=== PATIENT | female | born 1990 | race Caucasian/White ===

== ENCOUNTER 2018-08-06 09:49 | Inpatient (IN) | payer BC ==
[~2018-08-06] VITALS: Ht 172.7 cm; Wt 103.1 kg
[2018-08-06 10:24] VITALS: Ht 172.7 cm; Wt 103.1 kg
[2018-08-06] MEDS ORDERED: PNV11TAB PO (10:24)
[2018-08-06 10:25] VITALS: BP 112/66; RESP 18
[2018-08-06] MEDS ORDERED: LACTATED RINGER'S 1,000 ML IV SCH (10:26)
[2018-08-06] MEDS ORDERED: METHYLERGONOVINE 0.2 MG INJ IM PRN ×2 (10:30→22:30)
[2018-08-06] MEDS ORDERED: OXYTOCIN 30 UNITS/LR 500 ML IV PRN ×2 (10:30→22:30)
[2018-08-06] MEDS ORDERED: LIDOCAINE 1% (MPF) 30 ML INJ INJ PRN (10:30)
[2018-08-06] MEDS ORDERED: CARBOPROST 250 MCG INJ IM PRN ×2 (10:30→22:30)
[2018-08-06] MEDS ORDERED: MISOPROSTOL 200 MCG TAB PR PRN ×2 (10:30→22:30)
[2018-08-06] MEDS ORDERED: IBUPROFEN 600 MG TAB PO PRN (10:30)
[2018-08-06] MEDS ORDERED: OXYTOCIN 30 UNITS/LR 500 ML IV SCH ×3 (10:30→11:30)
--- NOTE | 2018-08-06 14:04 | HP ---
Date/Time of Note Date/Time of Note DATE: 08/06/18 TIME: 13:55 OB - History Hx of Present Free Text/Dictation 28-year-old female 3 para 1 at 40 weeks gestation admitted for elective induction of labor Last Menstrual Period: October 31, 2008 Estimated Due Date: Aug 06, 2018 : 3 Para: 1 Therapeutic : 1 Care: Good Care Obstetrical Complications: None Medical Complications: None, Other (Thrombocytosis which was apparently because of iron deficiency anemia and was resolving) Past Family/Social History * Past Medical, Surgical, Family and Obstetric Histories reviewed from chart. Blood Type: A+ Rubella: immune RPR/VDRL: Negative GBS Status: Negative HBsAG: Negative OB Admission Exam Vital Signs Vital Signs Vital Signs Date Temp Pulse Resp B/P (MAP) Pulse Ox O2 O2 Flow FiO2 Time Delivery Rate 08/06/18 98.2 18 112/66 Room Air 10:25 (81) Physical Exam HEENT: WNL Heart: Rhythm Normal Lungs: Clear, Equal Abdomen: WNL Extremities: Normal Reflexes: Normal Cervical Dilatation: 2cm Effacement: 25% Station: -3 Membranes: Intact Heart Rate: 140's Accelerations: Accelerations Present Decelerations: No Decelerations Varibility: Marked Contractions on Admission: None Last 72 hours Lab Results CBC & BMP 08/06/18 10:15 OB Assessment/Plan Other Assessment: Term gestation Elective induction of labor Other plan: Will start on Pitocin augmentation MOIZ SUBRAMANIAN MD Aug 06, 2018 14:04
[2018-08-06] MEDS ORDERED: FENTAnyl 2MCG/ML-ROPIV 0.2% 100 ML ONE (16:47)
--- NOTE | 2018-08-06 17:03 | PREAC ---
Date/Time of Note Date/Time of Note DATE: 08/06/18 TIME: 16:52 Anesthesia Eval and Record Evaluation Time Pre-Procedure Interview DATE: 08/06/18 TIME: 16:52 Age 28 Sex female NPO: 8 hrs Preoperative diagnosis Labor Pain Planned procedure Labor Epidural Past Medical History Past Medical History: Includes : : (2), Para: (1), Gestational age: (40) Surgery & Anesthesia Issues No known issue Meds Anticoagulation: No Beta Robert within 24 hr: No Reason Beta Robert not given: Pt. not on B-Robert Reported Medications [id number] ( 19) 1 Each Tablet, 1 TAB PO DAILY, TAB 08/06/18 Current Medications Lactated Ringer's 1,000 ml @ 125 mls/hr Q8H IV Last administered on 08/06/18at 10:48; Admin Dose 125 MLS/HR; Start 08/06/18 at 10:26 Lidocaine (Xylocaine 1% (Mpf)) 30 ml ONCE PRN INJ .EPISIOTOMY; Start 08/06/18 at 10:30 Oxytocin/Lactated Ringer's 500 ml @ 500 mls/hr ONCE POST IV ; Start 08/06/18 at 10:30 Oxytocin/Lactated Ringer's 500 ml @ 125 mls/hr POST IV ; Start 08/06/18 at 10:30 Ibuprofen (Motrin) 600 mg ONCE PRN PO .PAIN 1-5; Start 08/06/18 at 10:30 Oxytocin/Lactated Ringer's 500 ml @ 0 mls/hr ONCE PRN IV .VAGINAL BLEEDING; Start 08/06/18 at 10:30 Methylergonovine Maleate (Methergine) 0.2 mg ONCE PRN IM .VAGINAL BLEEDING; Start 08/06/18 at 10:30 Carboprost Tromethamine (Hemabate) 250 mcg ONCE PRN IM .VAGINAL BLEEDING; Start 08/06/18 at 10:30 Misoprostol (Cytotec) 1,000 mcg ONCE PRN TN .VAGINAL BLEEDING; Start 08/06/18 at 10:30 Oxytocin/Lactated Ringer's 500 ml @ 0 mls/hr Q0M IV Last administered on 08/06/18at 11:48; Admin Dose 1 MLS/HR; Start 08/06/18 at 11:30 Meds reviewed: Yes Allergies Coded Allergies: No Known Allergy (Unverified , 08/06/18) Allergies Reviewed: Yes Labs/Studies Labs Reviewed: Reviewed by anesthesiologist Result Diagram: 08/06/18 1015 Laboratory Tests 08/06/18 10:15 Blood Bank Test 08/06/18 10:15 Antibody Screen NEGATIVE Blood Type A POSITIVE Rh Immune Globulin Candidate NO test: Positive Studies: ECG (n/a), CXR (n/a) Pre-procedure Exam Last vitals Vital Signs Date Temp Pulse Resp B/P (MAP) Pulse Ox O2 O2 Flow FiO2 Time Delivery Rate 08/06/18 98.2 18 112/66 Room Air 10:25 (81) Airway: Adequate mouth opening, Adequate thyromental dist Mallampati: Mallampati II Teeth: Normal Lung: Normal Heart: Normal ASA Physical Status ASA physical status: 2 Emergency: None Planned Anesthetic Neuraxial: Epidural Planned Pain Management Epidural Pre-operative Attestations Prior to commencing anesthesia and surgery, the patient was re-evaluated, there was verification of: *The patient's identity *The results of appropriate recent lab work and preoperative vital signs *The above evaluation not changing prior to induction *Anesthetic plan, risk benefits, alternative and complications discussed with patient/family; questions answered; patient/family understands, accepts and wishes to proceed. SHELTON REYES MD Aug 06, 2018 17:02
--- NOTE | 2018-08-06 17:04 | PAC ---
Date/Time of Note Date/Time of Note DATE: 08/06/18 TIME: 17:04 Post-Anesthesia Notes Post-Anesthesia Note Last documented vital signs Vital Signs Date Temp Pulse Resp B/P (MAP) Pulse Ox O2 O2 Flow FiO2 Time Delivery Rate 08/06/18 98.2 78 18 112/66 98 Room Air 17:05 (81) Activity: WNL Respiratory function: WNL Cardiovascular function: WNL Mental status: Baseline Pain reasonably controlled: Yes Hydration appropriate: Yes Nausea/Vomiting absent: Yes SHELTON REYES MD Aug 06, 2018 17:04
[2018-08-06] MEDS ORDERED: FENTAnyl 2MCG/ML-ROPIV 0.2% 100 ML BAG EPI SCH (17:30)
[2018-08-06] MEDS ORDERED: NALOXONE (0.4 MG/ML) INJ IV PRN (17:30)
--- NOTE | 2018-08-06 20:00 | LDN ---
Date/Time of Note Date/Time of Note DATE: 08/06/18 TIME: 19:59 Delivery Summary Normal spontaneous vaginal delivery of a viable infant over intact perineum Weeks of Gestation 40 weeks Placenta Delivered: Spontaneously, Intact & Complete Meconium: none Episiotomy: No Perineal laceration: 0 Anesthesia type: Epidural Estimated blood loss: 200 Sponge & Needle done & correct: Yes All needle counts correct: Yes Any foreign bodies felt in the: No Delivery Information Sex Sex: male Apgars 1 Minute: 9 5 Minute: 9 Suctioning Nose & mouth suctioned at galina: Yes Delee suction performed: No Umbilical Cord Umbilical cord with: 3 Vessels Cord presentations: nuchal cord Nuchal cord present X: 1 Cord Blood was obtained: Yes Mother & Baby Disposition Disposition Mother and baby were recovered in good condition Mom transferred to: Other (Maternity) Baby to NICU: No MOIZ SUBRAMANIAN MD Aug 06, 2018 20:00
[2018-08-06] MEDS ORDERED: KETOROLAC 30 MG INJ IV STA (20:01)
[2018-08-06 22:00] VITALS: BP 127/58; PULSE 75; RESP 18
[2018-08-06] MEDS ORDERED: HYDROCODONE/APAP (5/325) TAB PO PRN ×2 (22:30)
[2018-08-06] MEDS: LACTATED RINGER'S 1,000 ML IV* SCH (22:30)
[2018-08-06] MEDS ORDERED: LANOLIN HPA 1 PKT TOP PRN (22:30)
[2018-08-06] MEDS ORDERED: DIBUCAINE 1% 30 GM OINT TOP PRN (22:30)
[2018-08-06] MEDS ORDERED: ZOLPIDEM 5 MG TAB PO PRN (22:30)
[2018-08-06] MEDS ORDERED: WITCH HAZEL/GLYCERIN PAD PR PRN (22:30)
[2018-08-06] MEDS ORDERED: BENZOCAINE 20% 56 ML SPRAY TOP PRN (22:30)
[2018-08-06] MEDS: CEPHALEXIN 500 MG CAP PO SCH (23:40)
[2018-08-06] MEDS: IBUPROFEN 600 MG TAB PO SCH (23:41)
[2018-08-07 04:00] VITALS: BP 110/57; PULSE 57; RESP 18
[2018-08-07] MEDS: CEPHALEXIN 500 MG CAP PO SCH ×4 (05:20→23:48)
[2018-08-07] MEDS: IBUPROFEN 600 MG TAB PO SCH ×4 (05:20→23:48)
[2018-08-07] MEDS: LACTATED RINGER'S 1,000 ML IV* SCH ×2 (06:14→14:30)
[2018-08-07 07:50] VITALS: BP 111/57; PULSE 64; RESP 17
[2018-08-07] MEDS: SENNA/DOCUSATE NA (8.6MG/50MG) TAB PO SCH ×2 (08:46→21:29)
[2018-08-07] MEDS: MAGNESIUM HYDROXIDE 30ML CUP PO SCH ×2 (08:46→21:29)
[2018-08-07 16:00] VITALS: BP 102/59; PULSE 65; RESP 16
[2018-08-07] MEDS ORDERED: IBUP-1542 PO (16:51)
--- NOTE | 2018-08-07 16:51 | DS ---
Date/Time of Note Date/Time of Note Home today or next DATE: 08/07/18 TIME: 16:48 Obstetrical Discharge Record Final Diagnosis Final Diagnosis: Term delivered Other Final Diagnosis Status post vaginal delivery Vaginal Delivery Obstetrical Delivery: Spontaneous Complications Augmentation: Yes Induction: Yes Condition on Discharge Physical Assessment Last Vitals: See nurse's notes Voiding: Yes Bowel Movement: Yes Breast: Soft, non-tender, Filling Fundus: Firm Abdomen and Incision: Abdomen is soft with firm fundus Episiotomy: Not applicable and perineum is clean Calf Tenderness: No Patient Condition: Good MOIZ SUBRAMANIAN MD Aug 07, 2018 16:51
--- NOTE | 2018-08-07 16:52 | PD.PPDC ---
[employer] Discharge Instruction Provider Information Physician Information 28-year-old female had vaginal delivery Diagnosis [id number] Final Diagnosis: [id number] Status post vaginal delivery Condition [id number] Patient Condition: [id number] Good Diet [id number] Diet: Vmosk6e Resume Regular Diet Activity/Restrictions [id number] Activity: [id number] Normal Activity May Shower [id number] Restrictions: Qesay7e Nothing in the Vagina [id number] Return to Work or School: [id number] Sep 24, 2018 Follow-up Follow-up with Physician: 2, 4, Week/Weeks (In clinic for follow-up) Return to clinic for [id number] OB Instructions: [id number] Breast Tenderness Depression Comment: Pelvic rest for 6 weeks MOIZ SUBRAMANIAN MD Aug 07, 2018 16:52
[2018-08-07 19:45] VITALS: BP 118/63; PULSE 70; RESP 19
[2018-08-08 03:45] VITALS: BP 115/55; PULSE 74; RESP 19
[2018-08-08] MEDS: IBUPROFEN 600 MG TAB PO SCH ×2 (05:49→11:43)
[2018-08-08] MEDS: CEPHALEXIN 500 MG CAP PO SCH ×2 (05:49→11:43)
[2018-08-08 08:15] VITALS: BP 103/66; PULSE 73; RESP 16
[2018-08-08] MEDS ORDERED: DIPHTH/TET/ACEL PERTUSS (ADULT) 0.5 ML VIAL IM* ONE (09:00)
[2018-08-08] MEDS ORDERED: VARICELLA VACCINE LIVE/PF 1,350 UNIT/0.5 ML ML SC* ONE (09:00)
[2018-08-08] MEDS ORDERED: MEASLES,MUMPS,RUBELLA VACCINE INJ SC* ONE (09:00)
[2018-08-08] MEDS: SENNA/DOCUSATE NA (8.6MG/50MG) TAB PO SCH (10:17)
[2018-08-08] MEDS: MAGNESIUM HYDROXIDE 30ML CUP PO SCH (10:18)
== END 2018-08-08 16:35 | disposition home or self-care (01) | DRG 807 ==
LOC: EDSTATUS 09:49 → L-D 09:51 → PP1 21:52
PROVIDERS: ADMIT Obstetrics & Gynecology; ATTEND Obstetrics & Gynecology
PROC: 10E0XZZ Delivery of Products of Conception, External Approach (ICD-10-PCS; principal; 2018-08-06)
PROC: 4A1HXCZ Monitoring of Products of Conception, Cardiac Rate, External Approach (ICD-10-PCS; 2018-08-06)
DX: O99.12 Other diseases of the blood and blood-forming organs and certain disorders involving the immune mechanism complicating childbirth (principal); Z37.0 Single live birth; D47.3 Essential (hemorrhagic) thrombocythemia; O69.81X0 Labor and delivery complicated by cord around neck, without compression, not applicable or unspecified; O99.02 Anemia complicating childbirth; D50.9 Iron deficiency anemia, unspecified; Z3A.40 40 weeks gestation of pregnancy
CPT/HCPCS: 62319; 76815; 76818; 85025; 85610; 85730; 86592; 86850; 86900; 86901; 87340; 90716; 99464; J2590; J3010; J7120